=== PATIENT | female | born 1990 | race Caucasian/White ===

== ENCOUNTER → 2016-11-12 | Outpatient (REF) | payer OTHER ==
[~2016-11-12] MED LIST: COLA100C PO; FLINCHW5 PO; IBUP800T23 PO; LORT5TAB PO; MILKSUS PO; MOTR200T44 PO; MYLASUS2 PO; PERC5TAB6 PO; VITAPRTA PO
== END ==
LOC: M LAB REF 16:55
PROVIDERS: ATTEND Obstetrics & Gynecology
DX: Z12.4 Encounter for screening for malignant neoplasm of cervix (principal)

== ENCOUNTER 2018-11-04 07:31 | Day surgery (SDC) | payer OTHER ==
[~2018-11-04] VITALS: Ht 154.9 cm; Wt 72.6 kg
[~2018-11-04 07:31] MED LIST changes: -COLA100C PO; +COLA100C5 PO; +IBUP1TAB7 PO; -IBUP800T23 PO; +LIDOCAINE 1% MDV 20ML VIAL SQ PRN; +LR 1,000 ML IV ONE; +MILK120011 PO; -MILKSUS PO; +MYLASUS16 PO; -MYLASUS2 PO; +PERC5TAB12 PO; -PERC5TAB6 PO; +TUMS500C PO; +ceFAZolin SOD 1 GM in D5W MINI-BAG PLUS 50 ML IV ONE
[2018-11-04] MEDS ORDERED: ONDANSETRON 4MG/2ML VIAL (J2405) As Ordered ONE (07:58)
[2018-11-04] MEDS ORDERED: LIDOCAINE 2% INJ 100 MG/5 ML SDV (FOR ANES.) As Ordered ONE (07:58)
[2018-11-04] MEDS ORDERED: MIDAZOLAM INJ 2 MG/2 ML VIAL (J2250) As Ordered ONE (07:58)
[2018-11-04] MEDS ORDERED: PROPOFOL 200 MG/20 ML VIAL As Ordered ONE (07:58)
[2018-11-04] MEDS ORDERED: fentaNYL 100 MCG/2 ML INJECTION (J3010) As Ordered ONE (07:58)
[2018-11-04] MEDS ORDERED: METOCLOPRAMIDE INJ 10MG/2ML VIAL (J2765) As Ordered ONE (07:58)
[2018-11-04] MEDS ORDERED: ROCURONIUM BROMIDE 50 MG/5 ML VIAL As Ordered ONE (07:58)
[2018-11-04] MEDS ORDERED: BUPIVACAINE/EPIN 0.25% 30 ML VIAL As Ordered ONE (09:07)
[2018-11-04] MEDS ORDERED: BUPIVACAINE LIPOSOME/PF 1.3% 20ML VIAL (13.3MG/ML)(EXPAREL)(C9290 PER1MG) As Ordered ONE (09:07)
[2018-11-04] MEDS ORDERED: BUPIVACAINE HCL 0.25% 30 ML VIAL As Ordered ONE (09:22)
[2018-11-04] MEDS ORDERED: LR 1,000 ML IV SCH ×2 (10:45)
[2018-11-04] MEDS ORDERED: PERCOCET 5MG/325MG TAB PO PRN (10:45)
[2018-11-04] MEDS ORDERED: METOCLOPRAMIDE INJ 10MG/2ML VIAL (J2765) IV PRN (10:45)
[2018-11-04] MEDS ORDERED: KETOROLAC 30 MG/ML VIAL (J1885) IV SCH (10:45)
[2018-11-04] MEDS ORDERED: ONDANSETRON 4MG/2ML VIAL (J2405) IV PRN ×2 (10:45)
[2018-11-04] MEDS ORDERED: NORCO, ANEXSIA 5/325MG TABLET (HYDROcodone/ACETAMINOPHEN) PO PRN (10:45)
[2018-11-04] MEDS ORDERED: fentaNYL 100 MCG/2 ML INJECTION (J3010) IV PRN (10:45)
[2018-11-04] MEDS ORDERED: MORPHINE 4 MG/ML 1ML VIAL/SYRINGE (J2270) IV PRN (10:45)
--- NOTE | 2018-11-04 10:48 | RO ---
DATE OF PROCEDURE: 11/04/2018 PREOPERATIVE DIAGNOSIS: Recurrent incisional hernia. POSTOPERATIVE DIAGNOSIS: Recurrent incisional hernia. PROCEDURE: Laparoscopic incisional hernia repair with Ventralight mesh. SURGEON: Dr. Jose Luis Hunt GRIT BLASTER: ANESTHESIA: General endotracheal anesthesia. ESTIMATED BLOOD LOSS: Minimal. FLUIDS: Crystalloid. BRIEF PROCEDURE SUMMARY: The patient was brought to the operating room and was given general anesthesia. After adequate anesthesia and preoperative antibiotics were given, the patient was prepped and draped in the usual sterile fashion. Next, a left subcostal incision was made with a skin knife. Blunt dissection was carried down to fascia. Veress needle placed into the abdominal cavity and insufflated to 15 mm of pressure. A left lower quadrant 5 mm trocar was placed under direct visualization after a camera port was placed at the left subcostal area. Next, numerous adhesions at the umbilicus were taken down with harmonic scalpel and then the previous patch that was present was mostly removed with the harmonic scalpel as well and brought out through the 12 mm trocar site at the umbilicus. Two other right lateral 5 mm trocars were inserted as well under direct visualization. Next, a Ventralight 15 cm round mesh was placed in the peritoneum and circumferentially Secure Straps were used to tack it in place and then on the medial aspect of the rectus muscle bilaterally. Good positioning was appreciated. The positioning device was removed through the right lower quadrant incision and all trocars were removed under direct visualization. #4-0 Vicryl was used to close all skin incisions. Steri-Strips and a dry sterile dressing was applied. The patient was awakened, extubated and brought to the recovery room awake, alert and hemodynamically stable. Sponge and needle counts were correct times two.
[2018-11-04] MEDS ORDERED: KETOROLAC 60 MG/2 ML VIAL (J1885) As Ordered ONE (10:53)
[2018-11-04 13:45] VITALS: BP 117/61
== END 2018-11-04 15:16 | disposition home or self-care (01) ==
LOC: M SDC 07:31
PROVIDERS: ATTEND Surgery
DX: K43.2 Incisional hernia without obstruction or gangrene (principal); K21.9 Gastro-esophageal reflux disease without esophagitis; L70.0 Acne vulgaris; Z98.51 Tubal ligation status; Z87.891 Personal history of nicotine dependence
CPT/HCPCS: 49656; 88302; C1781; C9290; J0690; J1885; J2250; J2405; J2765; J3010

== ENCOUNTER → 2021-06-08 | Outpatient (CLI) | payer OTHER ==
[~2021-06-08] MED LIST changes: -LIDOCAINE 1% MDV 20ML VIAL SQ PRN; -LR 1,000 ML IV ONE; -ceFAZolin SOD 1 GM in D5W MINI-BAG PLUS 50 ML IV ONE
[2021-06-08 15:33] LABS: HIV 1&2 SCREEN CENTAUR NEGATIVE (NEGATIVE)
[2021-06-08 18:07] LABS: GC DNA AMPLIFICATION NEGATIVE (NEGATIVE)
== END ==
LOC: M WUC 10:41
PROVIDERS: ATTEND Physician Assistant
DX: Z11.3 Encounter for screening for infections with a predominantly sexual mode of transmission (principal)

== ENCOUNTER 2023-01-20 06:21 | Emergency (ER) | payer OTHER ==
[~2023-01-20] VITALS: Ht 152.4 cm; Wt 69.1 kg
[2023-01-20] MEDS ORDERED: CYCL5TAB PO (08:29)
[2023-01-20] MEDS ORDERED: CYCLOBENZAPRINE 5MG TABLET PO ONE (08:30)
[2023-01-20] MEDS ORDERED: KETOROLAC 30 MG/ML 1ML VIAL IM ONE (08:30)
[2023-01-20 09:55] VITALS: BP 120/74
== END 2023-01-20 09:58 | disposition home or self-care (01) ==
LOC: M ED 06:21
DX: S39.012A Strain of muscle, fascia and tendon of lower back, initial encounter (principal); Z79.899 Other long term (current) drug therapy
CPT/HCPCS: 96372; 99284; J1885